=== PATIENT | male | born 1975 | race Caucasian/White ===

== ENCOUNTER 2017-06-26 06:37 | Emergency (ER) | payer OTHER ==
--- NOTE | 2017-06-26 06:38 | PDOC ---
History of Present Illness - General Chief Complaint: Pain, Acute Stated Complaint: KIDNEY STONE Time Seen by Provider: 06/26/17 06:38 - History of Present Illness Initial Comments: 06/26/17 06:48 This 42-year-old man with a history of kidney stones in the past presents with several hours of progressive left flank pain. Patient works at night and at approximately midnight while at work, he felt dull pain in his left flank/left lower back. Pain worsened in severity and became associated with mild nausea. Patient had no appetite and just drank water during the night. There was no vomiting. Symptoms are very similar to previous episodes of renal colic. No recent fever/chills, dysuria/hematuria/urinary frequency. Patient has noted somewhat decreased urine stream in recent days. Patient states that this is typical prior to previous episodes of renal colic. Patient has not had any upper respiratory symptoms/diarrhea or other GI symptoms recently. All previous episodes of kidney stones have resulted in spontaneous passage of the stone; he has not needed urologic procedure for removal or ESWL. PMH Renal colic as above Migraine headache Sleep apnea Past History - Past Medical History Allergies/Adverse Reactions: Allergies Allergy/AdvReac Type Severity Reaction Status Date / Time No Known Allergies Allergy Verified 06/26/17 06:38 Home Medications: Ambulatory Orders Naproxen [Naprosyn -] 500 mg PO PRN 06/26/17 GI Disorders: Yes (gerd) Kidney Stones: Yes - Suicide/Smoking/Psychosocial Hx Smoking Status: No Smoking History: Never smoked Have you smoked in the past 12 months: No Number of Cigarettes Smoked Daily: 0 Hx Alcohol Use: No Drug/Substance Use Hx: No Substance Use Type: None Abd/GI Specific PMHX - Complaint Specific PMHX Colitis: No Diverticulitis: No GERD: No Hepatitis: No Irritable Bowel Synd (IBS): No Pancreatitis: No GI Ulcer Disease: No Review of Systems - Review of Systems Able to Perform ROS?: Yes Comments:: 12 point review of systems is negative except for what is noted in the history of present illness *Physical Exam - Physical Exam Comments: GENERAL: Adult male, alert and oriented 3, in mild distress secondary to left flank pain HEAD: Normal with no signs of trauma. EYES: PERRLA, EOMI, sclera anicteric, conjunctiva clear. ENT: Ears normal, nares patent, oropharynx clear without exudates. Dry mucous membranes. NECK: Normal range of motion, supple without lymphadenopathy, JVD, or masses. LUNGS: Breath sounds equal, clear to auscultation bilaterally. No wheezes, and no crackles. HEART:Regular rate and rhythm, normal S1 and S2 without murmur, rub or gallop. ABDOMEN:.normal bowel sounds; left lower quadrant tenderness No guarding or rebound.No masses No distention. EXTREMITIES: Normal range of motion, no edema. No clubbing or cyanosis. No erythema, or tenderness. NEUROLOGICAL: Cranial nerves II through XII grossly intact. Normal speech. No focal neurological deficits. MUSCULOSKELETAL: Back non-tender to palpation, mild left CVA/flank tenderness SKIN: Warm, Dry, normal turgor, no rashes or lesions noted. Medical Decision Making - Medical Decision Making 06/26/17 06:54 This 42-year-old man with multiple episodes of renal colic (this would be the fourth) presents with several hour history of progressive left flank pain associated with mild nausea. Pain and progression of symptoms is very typical of what he has felt during previous episodes of renal colic. IV hydration with normal saline( 1 L) has been started and patient has received 30 mg Toradol IV CBC/chemistry profile/urinalysis will be sent 06/26/17 07:04 Patient has some residual flank pain and asks for additional pain medication: Morphine 2 mg IV given 06/26/17 07:09 Case signed out to incoming physician at end of shift *DC/Admit/Observation/Transfer - Discharge Dispostion Condition at time of disposition: Stable - Referrals - Patient Instructions - Post Discharge Activity
[2017-06-26] MEDS ORDERED: KETOROLAC TROMETHAMINE 30 MG/1 ML VIAL IVPUSH ONE (06:39)
[2017-06-26] MEDS ORDERED: SODIUM CHLORIDE 1,000 ML IV STA ×2 (06:39→07:06)
[2017-06-26 06:45] VITALS: TEMP 98.2; BMI 25.0
[2017-06-26] MEDS ORDERED: morphine CARPU-JECT 2 MG/1 ML DISP.SYRIN IVPUSH ONE (07:03)
[2017-06-26] MEDS ORDERED: morphine CARPU-JECT 2 MG/1 ML DISP.SYRIN ONE (07:04)
[2017-06-26 07:37] LABS: PH,URINE 5.5 (4.5-8); URINE APPEARANCE Clear; URINE BILIRUBIN Negative (NEGATIVE); URINE GLUCOSE (UA) Negative (NEGATIVE); URINE KETONE 2+ (NEGATIVE); URINE LEUK ESTERASE Negative (NEGATIVE); URINE NITRITE Negative (NEGATIVE); URINE PROTEIN Negative (NEGATIVE); URINE UROBILINOGEN 0.2 (0.2-1.0)
[2017-06-26 07:39] LABS: URINE BLOOD 1+ (NEGATIVE); URINE COLOR YELLOW
[2017-06-26 07:43] LABS: ALBUMIN 4.7 g/dl (3.5-5.0); ALK PHOS 61 U/L (32-92); ANION GAP 8 (8-16); BILIRUBIN,TOTAL 1.3 mg/dl (0.2-1.0); CO2 24 mmol/L (22-28); CREATININE 1.1 mg/dl (0.6-1.3); GLUCOSE,RANDOM 98 mg/dl (74-106); SGOT/AST 29 U/L (10-42); SGPT/ALT 52 U/L (10-40); TOT PROT 7.4 g/dl (6.4-8.3)
[2017-06-26 07:55] LABS: BASOPHIL 0.5 % (0-2.0); EOSINOPHIL 2.7 % (0-4.5); MCH 30.9 pg (25.7-33.7); MCHC 34.3 g/dl (32.0-35.9); MEAN CELL VOLUME 90.2 fl (80-96); MEAN PLT VOLUME 11.7 fl (7.5-11.1); NEUTROPHILS 70.1 % (42.8-82.8); PLATELET COUNT 169 K/MM3 (134-434); RDW 12.3 % (11.9-15.9); WHITE BLOOD COUNT 8.8 K/mm3 (4.0-10.8)
[2017-06-26 08:11] LABS: CALCIUM OXALATE CRYSTALS MODERATE /hpf (NONE SEEN); URINE BACTERIA NEGATIVE /hpf (NEGATIVE); URINE WBC 0-2 (0-2)
--- NOTE | 2017-06-26 08:59 | PDOC ---
*Physical Exam - Vital Signs Last Vital Signs Temp Pulse Resp BP Pulse Ox 98.2 F 73 16 130/90 97 06/26/17 06:41 06/26/17 06:41 06/26/17 06:41 06/26/17 07:42 06/26/17 06:41 ED Treatment Course - LABORATORY CBC & Chemistry Diagram: 06/26/17 06:50 06/26/17 06:50 - ADDITIONAL ORDERS Additional order review: Laboratory Results 06/26/17 06/26/17 06:50 06:50 Sodium 137 Potassium 3.6 Chloride 105 Carbon Dioxide 24 Anion Gap 8 BUN 18 Creatinine 1.1 Creat Clearance w eGFR > 60 Random Glucose 98 Calcium 10.0 Total Bilirubin 1.3 H D AST 29 ALT 52 H D Alkaline Phosphatase 61 Total Protein 7.4 Albumin 4.7 Urine Color Yellow Urine Appearance Clear Urine pH 5.5 Ur Specific Devol 1.025 Urine Protein Negative Urine Glucose (UA) Negative Urine Ketones 2+ H Urine Blood 1+ H Urine Nitrite Negative Urine Bilirubin Negative Urine Urobilinogen 0.2 Ur Leukocyte Esterase Negative Urine RBC 5-7 Urine WBC 0-2 Ur Epithelial Cells None seen Calcium Oxalate Crystal Moderate Urine Bacteria Negative 06/26/17 06:50 RBC 5.39 MCV 90.2 MCHC 34.3 RDW 12.3 MPV 11.7 H D Neutrophils % 70.1 Lymphocytes % 19.8 D Monocytes % 6.9 Eosinophils % 2.7 Basophils % 0.5 - Medications Given in the ED: ED Medications Discontinued Medications Generic Name Dose Route Start Last Admin Trade Name Freq PRN Reason Stop Dose Admin Sodium Chloride 1,000 mls @ 1,000 mls/hr 06/26/17 06:39 06/26/17 06:45 Normal Saline - IV 06/26/17 07:38 1,000 mls/hr ASDIR STA Administration Sodium Chloride 1,000 mls @ 1,000 mls/hr 06/26/17 07:06 06/26/17 07:08 Normal Saline - IV 06/26/17 08:05 1,000 mls/hr ASDIR STA Administration Ketorolac Tromethamine 30 mg 06/26/17 06:39 06/26/17 06:46 Toradol Injection - IVPUSH 06/26/17 06:40 30 mg ONCE ONE Administration Morphine Sulfate 2 mg 06/26/17 07:03 06/26/17 07:07 Morphine Injection - IVPUSH 06/26/17 07:04 2 mg ONCE ONE Administration Medical Decision Making - Medical Decision Making 06/26/17 08:52 42-year-old male with a history of recurrent kidney stones here today complaining of left flank pain. Patient signed out to me by Dr. Martinez's awaiting CT. CT results showing a intrarenal calculus 7.5 mm with mild left hydro-however no ureteral stone. Mild perinephric stranding. Patient denies dysuria fever chills or other urinary symptoms. UA is noted for blood only no signs of infection. We' ll trial of Percocet and likely DC home with outpatient urology follow-up *DC/Admit/Observation/Transfer Diagnosis at time of Disposition: Renal colic - Discharge Dispostion Disposition: HOME Condition at time of disposition: Improved Admit: No - Prescriptions Prescriptions: Oxycodone HCl/Acetaminophen [Percocet 5-325 mg Tablet] 1 tab PO Q6H #20 tablet MDD 4 - Referrals Referrals: Todd Ramirez MD [Staff Physician] - - Patient Instructions Printed Discharge Instructions: Kidney Stones (Alternative Therapy) Additional Instructions: Take Percocet one tablet every 4-6 hours as needed for persistent pain. He can also take Motrin 600 mg every 8 hours as needed. Take with food. Follow-up with Dr. Mercy Anaya the urologist, see referral information for his phone number to schedule follow-up. Return for any fever, chills, nausea, vomiting, or inability to urinate, or any concerns - Post Discharge Activity
[2017-06-26 09:48] VITALS: BP 128/82; PULSE 74
== END 2017-06-26 09:48 | disposition home or self-care (01) ==
LOC: FER 06:37
PROC: 3E0333Z Introduction of Anti-inflammatory into Peripheral Vein, Percutaneous Approach (ICD-10-PCS; principal; 2017-06-26)
PROC: 3E033NZ Introduction of Analgesics, Hypnotics, Sedatives into Peripheral Vein, Percutaneous Approach (ICD-10-PCS; 2017-06-26)
PROC: 3E0337Z Introduction of Electrolytic and Water Balance Substance into Peripheral Vein, Percutaneous Approach (ICD-10-PCS; 2017-06-26)
DX: N23 Unspecified renal colic (principal)
CPT/HCPCS: 36415; 74176; 80053; 81003; 81015; 85025; 99282-25

== ENCOUNTER 2019-08-27 18:46 | Emergency (ER) | payer OTHER ==
[2019-08-27 18:54] VITALS: BP 130/89; PULSE 82; TEMP 97.9; BMI 25.0
--- NOTE | 2019-08-27 20:15 | PDOC ---
Documentation entered by Angela Miller SCRIBE, acting as scribe for Kenny Valencia MD. Kenny Valencia MD: This documentation has been prepared by the scribe, Angela Miller SCRIBE, under my direction and personally reviewed by me in its entirety. I confirm that the documentation accurately reflects all work, treatment, procedures, and medical decision making performed by me. History of Present Illness - General Chief Complaint: Weakness Stated Complaint: numbness History Source: Patient Exam Limitations: No Limitations - History of Present Illness Initial Comments: 08/27/19 19:53 The patient is a 44-year-old male with a past medical history significant for Kidney stones, Migraines, Sleep apnea, and GERD, who presents to the emergency department with left-sided numbness and tingling. The patient reports he woke up from sleep around 5:15 pm with numbness in his L leg. As he stood up, he noticed that the numbness migrated up into his L arm and L face as well. The patient reports the symptoms lasted for about 5-10 minutes before resolving completely. The patient reports a similar episode last week with left leg numbness, which also resolved spontaneously. The patient currently denies any numbness or tingling in any extremity. Denies any weakness, slurred speech, dizziness. No headache or neck/back pain. The patient recalls having a recent MRI about three years ago, which was unremarkable. Pt currently has no complaints. Allergies: NKA Social history: Denies the use of tobacco, alcohol or recreational drug use. Works overnight. Family history: Father: 10 stents open heart surgery. Grandmothers: mini strokes. Neurologist: Dr. Florina Garcia at [facility]. Past History - Past Medical History Allergies/Adverse Reactions: Allergies Allergy/AdvReac Type Severity Reaction Status Date / Time No Known Allergies Allergy Verified 08/27/19 18:47 Home Medications: Ambulatory Orders NK [No Known Home Medication] 08/27/19 COPD: No GI Disorders: Yes (gerd) Kidney Stones: Yes - Psycho Social/Smoking Cessation Hx Smoking Status: No Smoking History: Never smoked Have you smoked in the past 12 months: No Number of Cigarettes Smoked Daily: 0 Hx Alcohol Use: Yes (once a week) Drug/Substance Use Hx: No Substance Use Type: None Review of Systems - Review of Systems Able to Perform ROS?: Yes Comments:: 08/27/19 19:55 GENERAL/CONSTITUTIONAL: No fever or chills. No weakness. HEAD, EYES, EARS, NOSE AND THROAT: No change in vision. No ear pain or discharge. No sore throat. CARDIOVASCULAR: No chest pain, no shortness of breath, no loss of consciousness RESPIRATORY: No cough, wheezing, or hemoptysis. GASTROINTESTINAL: No nausea, vomiting, diarrhea or constipation. GENITOURINARY: No dysuria, frequency, or change in urination. MUSCULOSKELETAL: No joint or muscle swelling or pain. No neck or back pain. SKIN: No rash NEUROLOGIC: +numbness and tingling to the left side of the body, denies slurred speech or facial drooping. No vertigo, no change in strength. ENDOCRINE: No increased thirst. No abnormal weight change. HEMATOLOGIC/LYMPHATIC: No anemia, easy bleeding, or history of blood clots. ALLERGIC/IMMUNOLOGIC: No hives or skin allergy. *Physical Exam - Vital Signs Last Vital Signs Temp Pulse Resp BP Pulse Ox 97.9 F 82 15 130/89 100 08/27/19 18:47 08/27/19 18:47 08/27/19 18:47 08/27/19 18:47 08/27/19 18:47 - Physical Exam 08/27/19 20:01 GENERAL: Awake, alert, and fully oriented, in no acute distress. HEAD: No signs of trauma EYES: PERRLA, EOMI, sclera anicteric, conjunctiva clear ENT: Auricles normal inspection, hearing grossly normal, nares patent, oropharynx clear without exudates. Moist mucosa NECK: Nontender, no stepoffs, Normal ROM, supple, no lymphadenopathy, JVD, or masses LUNGS: Breath sounds equal, clear to auscultation bilaterally. No wheezes, and no crackles HEART: Regular rate and rhythm, normal S1 and S2, no murmurs, rubs or gallops ABDOMEN: Soft, nontender, normoactive bowel sounds. No guarding, no rebound. No masses EXTREMITIES: Normal range of motion, no edema. No clubbing or cyanosis. No cords , erythema, or tenderness NEUROLOGICAL: Cranial nerves II through XII intact. 5/5 strength and sensation in all extremities, Normal speech, normal gait, normal cerebellar function SKIN: Warm, Dry, normal turgor, no rashes or lesions noted. Medical Decision Making - Medical Decision Making 08/27/19 20:19 44 M with transient episode of L sided numbness upon awakening that resolved spontaneously after 5-10 minutes. Pt with no focal neuro deficits at this time. Low suspicion for CVA/TIA as pt has no significant risk factors. Unlikely demyelinating process given transient nature of symptoms. - F/u neuro outpt Pt is well appearing, with normal vitals. Clinically stable for DC at this time. I discussed the physical exam findings, ancillary test results and final diagnoses with the patient. I answered all of the patient's questions. The patient was satisfied with the care received and felt comfortable with the discharge plan and treatment plan. The patient agrees to follow up with the primary care physician within 24-72 hours. Discharge - Discharge Information Problems reviewed: Yes Clinical Impression/Diagnosis: Paresthesia Condition: Stable Disposition: HOME - Follow up/Referral - Patient Discharge Instructions Patient Printed Discharge Instructions: DI for Numbness/tingling Additional Instructions: Your symptoms today may be due to a "complex migraine", which can sometimes mimic a stroke. Because your examination in the ER did not reveal any abnormal findings, it is highly unlikely that you suffered a stroke. Nonetheless, you should make a follow up appointment with your neurologist as soon as possible to discuss your symptoms today. If you experience recurrent numbness, weakness, slurred speech, headache, or any other concerning symptoms, return to the ER immediately. - Post Discharge Activity
== END 2019-08-27 20:00 | disposition home or self-care (01) ==
LOC: FER 18:46
DX: R20.2 Paresthesia of skin (principal); K21.9 Gastro-esophageal reflux disease without esophagitis; G43.909 Migraine, unspecified, not intractable, without status migrainosus; N20.0 Calculus of kidney
CPT/HCPCS: 99281-25